=== PATIENT | female | born 1995 ===

== ENCOUNTER → 2020-02-06 | Outpatient (CLI) | payer OTHER | END | disposition home or self-care (01) | LOC: PRENATAL 11:00 | PROVIDERS: ATTEND Obstetrics & Gynecology Maternal & Fetal Medicine | DX: O35.0XX1 Maternal care for (suspected) central nervous system malformation in fetus, fetus 1 (principal); O35.3XX1 Maternal care for (suspected) damage to fetus from viral disease in mother, fetus 1; O98.512 Other viral diseases complicating pregnancy, second trimester; Z36.89 Encounter for other specified antenatal screening; Z3A.26 26 weeks gestation of pregnancy ==

== ENCOUNTER → 2020-03-19 | Outpatient (CLI) | payer OTHER ==
[~2020-03-19] MED LIST: ALDOMET250 MG/5 M PO; CHILDREN'S ASPI81 MG PO; PRENATAL TABLE1 EAC1 PO; Procardia Xl 30MG TA PO; VALTREX1000 MG PO
== END | disposition home or self-care (01) ==
LOC: PRENATAL 11:30
PROVIDERS: ATTEND Obstetrics & Gynecology Maternal & Fetal Medicine
DX: O26.843 Uterine size-date discrepancy, third trimester (principal); O10.013 Pre-existing essential hypertension complicating pregnancy, third trimester; O36.8131 Decreased fetal movements, third trimester, fetus 1; Z36.89 Encounter for other specified antenatal screening; Z3A.33 33 weeks gestation of pregnancy

== ENCOUNTER 2020-04-16 14:15 | Inpatient (IN) | payer OTHER ==
[~2020-04-16] VITALS: Ht 157.5 cm; Wt 86.2 kg
[2020-04-20] MEDS ORDERED: PRENATAL TABLE1 EAC1 PO (07:40)
[2020-04-20] MEDS ORDERED: ALDOMET250 MG/5 M PO (07:40)
[2020-04-20] MEDS ORDERED: CHILDREN'S ASPI81 MG PO (07:42)
[2020-04-20] MEDS ORDERED: VALTREX1000 MG PO (07:43)
[2020-04-22] MEDS ORDERED: Procardia Xl 30MG TA PO (17:42)
== END 2020-04-22 17:59 | disposition home or self-care (01) | DRG 806 ==
LOC: LDR 04-20 05:58 → OB/GYN 04-20 21:10
PROVIDERS: ADMIT Obstetrics & Gynecology; ATTEND Obstetrics & Gynecology
PROC: 10E0XZZ Delivery of Products of Conception, External Approach (ICD-10-PCS; principal; 2020-04-20)
PROC: 0KQM0ZZ Repair Perineum Muscle, Open Approach (ICD-10-PCS; 2020-04-20)
PROC: 0UQMXZZ Repair Vulva, External Approach (ICD-10-PCS; 2020-04-20)
PROC: 10907ZC Drainage of Amniotic Fluid, Therapeutic from Products of Conception, Via Natural or Artificial Opening (ICD-10-PCS; 2020-04-20)
PROC: 3E033VJ Introduction of Other Hormone into Peripheral Vein, Percutaneous Approach (ICD-10-PCS; 2020-04-20)
PROC: 3E0P7VZ Introduction of Hormone into Female Reproductive, Via Natural or Artificial Opening (ICD-10-PCS; 2020-04-20)
PROC: 4A1HXFZ Monitoring of Products of Conception, Cardiac Rhythm, External Approach (ICD-10-PCS; 2020-04-20)
DX: O70.1 Second degree perineal laceration during delivery (principal); O10.02 Pre-existing essential hypertension complicating childbirth; Z37.0 Single live birth; O71.82 Other specified trauma to perineum and vulva; Z3A.37 37 weeks gestation of pregnancy; Z20.822 Contact with and (suspected) exposure to COVID-19